=== PATIENT | female | born 1980 | race Caucasian/White ===

== ENCOUNTER 2017-03-30 06:47 | Day surgery (SDC) | payer BC, MEDICAID, OTHER ==
--- NOTE | 2017-03-29 12:56 | GHP ---
[f rep st] HISTORY AND PHYSICAL DATE OF ADMISSION: 03/30/2017 ADMITTING DIAGNOSIS: Request for permanent sterilization, family status complete. HISTORY OF PRESENT ILLNESS: The patient is a 36-year-old, 3, para 2-0-1 -2, with last menstrual period 03/19/2017, who presents to my office requesting a bilateral tubal ligation. Patient states she is done having children, her family is complete, and desires sterilization at this time. She is not interested in Essure as she is now and would like this done as soon as possible. We discussed proceeding with a bilateral salpingectomy, removal of tubes, since 20% of ovarian cancer starts in the fallopian tubes. She agrees with the plan at this time. PAST OBSTETRICAL HISTORY: Uncomplicated vaginal delivery x2. Missed AB x1. PAST GYNECOLOGICAL HISTORY: Age of menarche was 12. Cycles are regular. Denies any history of abnormal Pap smears or any exposure to sexually transmitted diseases. PAST MEDICAL HISTORY: Unremarkable. PAST SURGICAL HISTORY: Tonsillectomy. MEDICATIONS: None. ALLERGIES: No known drug allergies. SOCIAL HISTORY: Patient is . She lives with her 2 children. Denies any illicit drug use or tobacco use. Drinks socially 1-2 times per week. FAMILY HISTORY: Unremarkable. PHYSICAL EXAMINATION: VITAL SIGNS: On admission, vital signs are stable. Patient is afebrile. GENERAL: Well-nourished, well-developed female, alert and oriented x3. No apparent distress. CARDIOVASCULAR: Regular rate and rhythm. LUNGS: Clear to auscultation bilaterally. ABDOMEN: Soft, nondistended, and nontender. PELVIC: Deferred. EXTREMITIES: Normal to inspection, without calf tenderness or edema. ASSESSMENT: Patient is a 36-year-old, 3, para 2-0-1-2, who presents for request for permanent sterilization, family status is complete. 1. Discussed the procedure, laparoscopic bilateral salpingectomy, its limitations, n.p.o. status, and postoperative recovery. 2. Surgical consents were obtained. Discussed risks, benefits, and alternatives of the procedure including, but not limited to, bleeding, infection , damage to surrounding organs. 3. Patient understands all risks of surgery at this time and wants to proceed with surgery. 4. On-call antibiotics, Ancef 2 g. 5. Sequential compression devices for deep venous thrombosis prophylaxis. /[id number]/MODL MTDD
--- NOTE | 2017-03-30 07:02 | PDHPUP ---
History & Physical Update H&P update statement: This history and physical update is based on an assessment of the patient which was completed after admission or registration (within 24 hours), but prior to the surgery/procedure. H&P update: H&P reviewed & patient examined, no change in patient's condition since H&P completed
[2017-03-30] MEDS ORDERED: ceFAZolin 2 GM/SWFI 2 GM/20 ML SYR IVP ONE (07:27)
[2017-03-30] MEDS ORDERED: BUPIVACAINE 0.5% 30 ML SDV ONE (07:42)
[2017-03-30] MEDS ORDERED: SILVER NITRATE APPLICATOR 1 APPL TP ONE (07:43)
[2017-03-30] MEDS ORDERED: LR 1,000 ML IV ONE (07:50)
[2017-03-30] MEDS ORDERED: MIDAZOLAM 2 MG/2 ML VIAL IVP ONE (08:13)
--- NOTE | 2017-03-30 08:13 | PDANEPAE ---
ANE History of Present Illness here for bilat salpingectomy ANE Past Medical History - Cardiovascular History Hx Hypertension: No Hx Arrhythmias: No Hx Chest Pain: No Hx Coronary Artery / Peripheral Vascular Disease: No Hx CHF / Valvular Disease: No Hx Palpitations: No - Pulmonary History Hx COPD: No Hx Asthma/Reactive Airway Disease: No Hx Recent Upper Respiratory Infection: No Hx Oxygen in Use at Home: No Hx Sleep Apnea: No Sleep Apnea Screening Result - Last Documented: Negative - Neurologic History Hx Cerebrovascular Accident: No Hx Seizures: No Hx Dementia: No - Endocrine History Hx Diabetes: No - Renal History Hx Renal Disorders: No - Liver History Hx Hepatic Disorders: No - Neurological & Psychiatric Hx Hx Neurological and Psychiatric Disorders: No - Cancer History Hx Cancer: No - Congenital Disorder History Hx Congenital Disorders: No - GI History Hx Gastrointestinal Disorders: Yes Gastrointestinal History Comment: "gluten allergy" denies Celiac disease - Other Health History Other Health History: desires sterilization - Chronic Pain History Chronic Pain: No - Surgical History Prior Surgeries: tonsillectomy 1986. wisdom teeth (Dr's office) 2003 ANE Review of Systems Review of systems is: negative Review of Systems: - Exercise capacity Exercise capacity: >=4 METS METS (RN): 4 METS ANE Patient History - Allergies Allergies/Adverse Reactions: gluten Allergy (Verified 03/15/17 16:04) Abdominal Cramping - Home Medications Home medications: home medication list seen and reviewed Home Medications: Probiotic 03/15/17 [Last Taken 03/28/17] Vitamin D3 03/15/17 [Last Taken 03/28/17] - NPO status NPO Status: no food or drink >8 hours NPO Since - Liquids (Date): 03/30/17 NPO Since - Liquids (Time): 00:00 NPO Since - Solids (Date): 03/29/17 NPO Since - Solids (Time): 19:30 - Smoking Hx Smoking Status: Never smoked - Family Anes Hx Family Hx Anesthesia Complications: none ANE Labs/Vital Signs - Vital Signs Blood Pressure: 109/71 Heart Rate: 76 Respiratory Rate: 17 O2 Sat (%): 95 Height: 162.56 cm Weight: 79.379 kg ANE Physical Exam - Airway Neck exam: FROM Mallampati Score: Class 1 - Pulmonary Pulmonary: no respiratory distress - Cardiovascular Cardiovascular: regular rate and rhythym - ASA Status ASA Status: I ANE Anesthesia Plan Anesthesia Plan: general endotracheal anesthesia
[2017-03-30] MEDS ORDERED: PROPOFOL/EMULSION 500 MG/50 ML BOTTLE IV ONE (08:15)
[2017-03-30] MEDS ORDERED: fentaNYL 100 MCG/2 ML INJ ONE ×2 (08:15→08:55)
[2017-03-30] MEDS ORDERED: LIDOCAINE 2% 5 ML SDV ONE (08:18)
[2017-03-30] MEDS ORDERED: ESMOLOL HCL 100 MG/10 ML VIAL IV ONE (09:00)
[2017-03-30] MEDS ORDERED: SUGAMMADEX SODIUM 200 MG/2 ML VIAL IVP ONE (09:14)
[2017-03-30] MEDS ORDERED: KETOROLAC 30 MG/1 ML SDV ONE (09:16)
--- NOTE | 2017-03-30 09:37 | POSTOPPROG ---
Post Op Note Date of Operation: 03/30/17 Surgeon: Kaya Camacho General Hardware Salesperson: Hemant Clarke Anesthesiologist: Steve Herndon Anesthesia: GET(General Endotracheal) Pre-op Diagnosis: Request for permanent sterilization; family status complete Post-op Diagnosis: Request for permanent sterilization; family status complete Indication: 36 y/o who requests permanent sterilization; family status complete Procedure: Laparoscopic b/l salpingectomy Findings: Grossly normal appearing uterus, tubes and ovaries. Upper abd grossly wnl Inf/Abcess present in the surg proc area at time of surgery?: No Depth: Superfical (Skin SQ) EBL: Minimal (10cc) Total fluids administered: 1 L LR UO: 125 cc clear urine at end Complications: None Specimen(s): B/L tubes
[2017-03-30] MEDS ORDERED: PROMETHAZINE HCL 25 MG/ML INJ IVP PRN (09:38)
[2017-03-30] MEDS ORDERED: HYDROCODONE/APAP 5/325 TAB PO PRN (09:38)
[2017-03-30] MEDS ORDERED: ONDANSETRON 4 MG/2 ML VIAL IVP PRN (09:38)
[2017-03-30] MEDS ORDERED: OXYCODONE/APAP 5/325 TAB PO PRN (09:38)
[2017-03-30] MEDS ORDERED: ALBUTEROL 3 ML DEYVIAL IH PRN (09:38)
[2017-03-30] MEDS ORDERED: NALOXONE HCL 0.4 MG/ML INJ IVP PRN (09:38)
[2017-03-30] MEDS ORDERED: fentaNYL 100 MCG/2 ML INJ IVP PRN (09:38)
[2017-03-30] MEDS ORDERED: HYDROmorphONE/DILAUDID 1 MG/ML INJ IVP PRN (09:38)
--- NOTE | 2017-03-30 09:39 | POSTANESTH ---
Post Anesthetic Evaluation Cardiovascular Status: Normal, Stable Respiratory Status: Normal, Stable Level of Consciousness/Mental Status: Can Participate in Eval Pain Control: Adequate, Prn Tx Ordered Nausea/Vomiting Control: Adequate, Prn Tx Ordered Complications Possibly Related to Anesthesia: None Noted
[2017-03-30] MEDS ORDERED: HYDROCODONE/APAP 5/325 TAB ONE (10:13)
[2017-03-30 11:09] VITALS: BP 110/70; PULSE 66; RESP 16; TEMP 98.1; O2SAT 95
--- NOTE | 2017-03-30 18:03 | GOP ---
[f rep st] OPERATIVE REPORT DATE OF OPERATION: 03/30/2017 SURGEON: Kaya Camacho DO SENIOR IT RECRUITER: Yaakov Clarke MD ANESTHESIA: General endotracheal. ANESTHESIOLOGIST: Steve Herndon MD PREOPERATIVE DIAGNOSIS: Request for permanent sterilization, family status complete. POSTOPERATIVE DIAGNOSIS: Request for permanent sterilization, family status complete. PROCEDURE PERFORMED: Laparoscopic bilateral salpingectomy. FINDINGS: Grossly normal-appearing uterus, tubes, and ovaries bilaterally. Upper abdomen grossly normal appearing, as well. All specimens sent to Pathology. SPECIMENS: Bilateral tubes. ESTIMATED BLOOD LOSS: 10 cc. INDICATIONS: Patient is a 36-year-old, 3, para 2-0-1-2, who presented to my office requesting permanent sterilization. She is now and family status is complete. Discussed proceeding with a laparoscopic salpingectomy/removal of tubes. Discussed risks, benefits, and alternatives of the procedure including, but not limited to bleeding, infection, and damage to surrounding organs. Patient understands all risks at this time and wants to proceed with surgery. DESCRIPTION OF PROCEDURE: The patient was taken to the operating room where general anesthesia was obtained without difficulty. Patient was placed in dorsal lithotomy position and prepped and draped in the usual sterile fashion. A Fam catheter was placed into the bladder. An open-sided speculum was placed in the vagina. Anterior lip of the cervix was grasped with an Allis clamp, and the uterus was sounded to 7 cm. An Lyncourt manipulator was then advanced into the uterus to provide a means to manipulate the uterus. We turned our attention to the abdomen. The umbilicus was infiltrated with 0.5 % plain Marcaine, and a stab incision was made with a scalpel. A Veress needle was placed while tenting the abdominal wall and there was negative aspiration. CO2 gas turned on and pneumoperitoneum was obtained. Veress needle was then removed and a 5 mm trocar containing a 30-degree scope was then placed in the abdomen under direct visualization. Two other ports were then placed under direct visualization: A 5 mm port in the left lower quadrant, and another 5 mm in the right lower quadrant. The patient was placed in Trendelenburg position. Examination of the pelvis revealed the above findings. At this time, we turned our attention to the right fallopian tube. The right tube was stabilized using a grasper. Then using the LigaSure, the tube was dissected away from the mesosalpinx as well as the ovary. The LigaSure was also used to come across the tubal insertion into the uterus. Hemostasis was noted. The tube was taken out through the 5 mm port without difficulty. We then turned our attention to the left tube and this was done in a similar fashion. The left tube was stabilized using a grasper, and the LigaSure was used to dissect the tube away from the mesosalpinx and ovary and used to come across the tubal insertion on the uterus. Hemostasis was noted. The left tube was then removed through the 5 mm port, again without difficulty. The pelvis was copiously irrigated and suctioned. All pedicles did appear hemostatic. All instruments were removed from the abdomen, and all gas was allowed to escape. The 5 mm skin incisions were closed with 4-0 Vicryl and then covered with Steri-Strips and Band-Aids. The patient was taken out Trendelenburg. All instruments were then removed from her vagina. Hemostasis was noted. The Fam catheter was removed. All sponge and instrument counts correct x2 at the end of the procedure. Patient tolerated the procedure well. No complications. The patient was then awakened , taken out of dorsal lithotomy position, and taken to recovery room in stable condition. IV FLUIDS: 1 L of LR. URINE OUTPUT: 125 cc of clear urine at the end of the procedure. COMPLICATIONS: None. /[id number]/MODL MTDD
== END 2017-03-30 11:55 | disposition home or self-care (01) ==
LOC: FSGY 06:47
PROVIDERS: ATTEND Obstetrics & Gynecology
PROC: 0UT74ZZ Resection of Bilateral Fallopian Tubes, Percutaneous Endoscopic Approach (ICD-10-PCS; principal; 2017-03-30 08:30)
DX: Z30.2 Encounter for sterilization (principal)
CPT/HCPCS: J0690; J1885; J2250; J2704; J3010